=== PATIENT | female | born 1985 | race Caucasian/White ===

== ENCOUNTER 2023-10-11 11:51 | Outpatient (REF) | payer MEDICAID, SELFPAY ==
[2023-10-11 14:12] LABS: Alanine Aminotransferase 11 U/L (0-31); Albumin Level 4.4 g/dL (3.5-5.0); Alkaline Phosphatase 31 U/L (39-117); Aspartate Amino Transferase 14 U/L (5-31); Bilirubin Direct 0.2 mg/dL (0.0-0.5); Bilirubin Total 0.6 mg/dL (0.0-1.0); Total Protein 7.7 g/dL (6.5-8.0)
[2023-10-11 14:48] LABS: Syphilis Screen Nonreactive (Nonreactive)
[2023-10-12 08:14] LABS: HBS Num1 18.95 mIU/mL (0-7.99); HBc Num1 0.16 S/CO (0.00-0.79); HBsAGNum1 0.23 S/CO (0.00-0.99); HIV AB/AG Nonreactive (Nonreactive); HIV Num 1 0.07 S/CO (0.00-0.99); Hepatitis B Core Antibody Nonreactive (Nonreactive); Hepatitis B Surface Antigen Negative (Negative); ~HepC Num1 0.13 S/CO (0.00-0.79); ~Hepatitis B Surface Antibody REACTIVE (Nonreactive); ~Hepatitis C Antibody Nonreactive (Nonreactive)
[2023-10-13 19:29] LABS: TS Negative Control Passed; TS Panel A 0; TS Panel B 1; TS Positive Control Passed; TSpotTB Negative (Negative)
== END 2023-10-11 11:52 | disposition home or self-care (01) ==
LOC: HO.HHCL 11:51
PROVIDERS: Visit Provider Emergency Medicine
DX: Z11.4 Encounter for screening for human immunodeficiency virus [HIV] (principal); Z11.1 Encounter for screening for respiratory tuberculosis; F11.20 Opioid dependence, uncomplicated
CPT/HCPCS: 36415; 80076; 86481; 86704; 86706; 86780; 86803; 87340; 87389

== ENCOUNTER 2025-05-21 09:14 | Outpatient (REF) | payer MEDICAID, SELFPAY ==
--- OUTSIDE RECORDS SUMMARY | 2025-05-21 09:40 | XMS_ITS | Encounter Summary ---
Author Organization [employer] Address [address] [facility] 7t [place] [address] Care Team Providers Care Lining Stuffer Name Role Phone Unavailable Primary Care Provider Unavailabl e Reason for Visit * Reason Comments Med Refill Encounter Details Date Type Department Care Team (Late Contact Info) Description 05/14/[address] [facility] [address] [place] [address] 14934 Tho Welch MD [address] [place] [address] 13370 Uncomplicated opioid dependence (CMS/[facility]) Social History Tobacco Use Types Packs/Day Years Used Date Smoking Tobacco: Former Cigarettes Smokeless Tobacco: Never Comments Unknown Sex and Gender Information Value Date Recorded Sex Assigned at Female 07/26/2022 10:29 AM EDT Legal Sex Female 10:29 AM EDT Gender Identity Female 07/26/2022 10:29 AM EDT Sexual Orientation Straight 07/26/2022 10 :29 AM EDT documented as of this encounter Plan of Treatment Upcoming Encounters Date Type Department Care Team (Late Contact Info) Description 05/21/2025 10:00 AM EDT Office Visit [facility] [address] [place] [address] 24324 Gurwinder Guerrero MD [address] [place] [address] 92158 Arrived 08/13/2025 10:00 AM EST Office Visit [facility] [address] [place] [address] 13786 Gurwinder Guerrero MD [address] [place] [address] 13557 documented as of this encounter Visit Diagnoses Diagnosis Uncomplicated opioid dependence (CMS/HCC) documented in this encounter
--- OUTSIDE RECORDS SUMMARY | 2025-05-21 09:40 | XMS_ITS | Clinical Summary ---
Author Organization [employer] Address [address] [facility] [address] 7t [place] [address] Care Team Providers Care Rail Car Repair Carman Name Role Phone Unavailable Primary Care Provider Unavailabl e Allergies No known active allergies Medications * This document contains information received from the source organization and may not represent a complete record from that organization. naloxone (Narcan) 4 mg/0.1 mL nasal spray FOR SUSPECTED OPIOID OVERDOSE. SPRAY 0.1mL IN ONE NOSTRIL. REPEAT IN ALTERNATE NOSTRIL 2-3 MINUTES IF NEEDED. SEEK MEDICAL ATTENTION IMMEDIATELY EVEN IF PATIENT RESPONDS. 2 each 1 3 Active docusate sodium (Colace) 100 MG capsule TAKE 1 CAPSULE BY MOUTH TWICE DAILY NEEDED FOR CONSTIPATION 180 capsule 5 4 Active nicotine polacrilex (Nicorette) 2 MG gum Chew one piece q 2-4 hours as needed instead of a cigarette. 100 each 1 5 Active Ventolin HFA 108 (90 Base) MCG/ACT inhaler Inhale 2 puffs every 6 (six) hours if needed. 5 Active Buprenorphine HCl-Naloxone HCl (Suboxone) 8-2 MG SL filmIndication s:Uncomplicate d opioid dependence (CMS/HCC) Place 1 Film under the tongue 2 times daily. Do not start before March 18, 2025. 56 Film 1 5 05/13/20 25 Active Problems Problem Noted Date Diagnosed Date JONATHAN (generalized anxiety disorder) 11/15/2024 Opioid dependence, uncomplicated 10/10/2015 Encounters Date Type Department Care Team Description 05/21/2025 10:00 AM EDT Office Visit [facility] [address] [place], [place] [address], [place] [address] Gurwinder Guerrero MD Arrived 05/21/2025 Travel 05/09/2025 Refill [facility] [address] [place] [address] Tho Welch MD Uncomplicated opioid dependence ([facility]) 04/25/2025 Telephone [facility] [address] [place] [address] Chen Cabrales RN 04/25/2025 Telephone [facility] [address] [place] [address] Josue Delacruz MD 03/28/2025 Telephone [facility] [address] [place] [address] Josue Delacruz MD New Patient appt. 03/27/2025 Telephone [facility] [address] [place] [address] Abdias Joyce RN 03/22/2025 Telephone [facility] [address] [place] [address] Gloria Gaspar RN 03/22/2025 Telephone [facility] [address] [place] [address] Gloria Gaspar RN 03/19/2025 Refill [facility] [address] [place] [address] Gloria Gaspar RN 03/15/2025 Refill [facility] [address] [place] [address] Gloria Gaspar, SUBHA Uncomplicated opioid dependence ([facility]) 02/21/2025 Telephone [facility] [address] [place] [address] Gloria Gaspar, SUBHA from Last 3 Months Immunizations Immunization Administration Dates Next Due Influenza injectable quadriv alent IIV4 with preservative 07/28/2018 Tdap 11/17/2017 Social History Tobacco Use Types Packs/Day Years Used Date Smoking Tobacco: Former Cigarettes Smokeless Tobacco: Never Tobacco Cessation:Counseling Given: Not Answered Depression Answer Date Recorded Patient Health Questionnaire-9 Score 2 11/15/2024 Patient Health Questionnaire-9 Score 2 11/15/2024 Last PHQ-9: Questionnaire Data Not on file 0 11/15/2024 Depression Answer Date Recorded Patient Health Questionnaire-2 Score 0 11/15/2024 Comments Unknown Sex and Gender Information Value Date Recorded Sex Assigned at Female 07/26/2022 10:29 AM EDT Legal Sex Female 10:29 AM EDT Gender Identity Female 07/26/2022 10:29 AM EDT Sexual Orientation Straight 07/26/2022 10 :29 AM EDT Last Filed Vital Signs Vital Sign Reading Time Taken Comments Blood Pressure 132/72 01/31/2024 1:56 PM EDT Pulse 85 01/31/2024 1:56 PM EDT Temperature 36.8 C (98.2 F) 01/31/2024 1:56 PM EDT Respiratory Rate - - Oxygen Saturation - - Inhaled Oxygen Concentration - - Weight - - Height - - Body Mass Index - - Plan of Treatment Upcoming Encounters Date Type Department Care Team (Late st Contact Info) Description 05/21/2025 10:00 AM EDT Office Visit [facility] [address] [place] [address] 98115 Gurwinder Guerrero MD [address] [place] [address] 88[address] Arrived 08/13/2025 10:00 AM EST Office Visit [address] [address] Gurwinder Guerrero MD [address] [place] [address] Health Maintenance Due Date Last Done Comments SDOH Screening 1987 Disability Screening 1987 Alcohol/Substance Use Screening 1999 Family Planning (PISQ) 2002 HPV Vaccines (1 - 3-dose series) 2002 Hepatitis B Vaccines (1 of 3 - 19+ 3-dose series) 2006 Pneumococcal Vaccine: Pediatrics (0 to 5 Years) and At-Risk Patients (6 to 49) Years (1 of 2 - PCV) 2006 Pap Smear 2008 Cervical Cancer Screening 2017 HPV/Cotest 2017 COVID-19 Vaccine ( - season) 2024 Influenza Vaccine (#1) 2025 07/28/2018 Tobacco Screening 07/17/2025 07/17/2024 Depression Screening 11/15/2025 11/15/2024, 11/15/19 DTaP/Tdap/Td Vaccines (2 - Td or Tdap) 11/17/2027 11/17/2017 Zoster Vaccines (1 of 2) 2037 RSV Patients and Patients Aged 60 years or older (1 - 1-dose 75+ series) 2062 HIV Screening Completed 10/11/2023, 12/26, 01/21/2022, Additional history exists Hepatitis C Screening Completed 10/11/2023 , 01/21/2022, 01/21/2022, Additional history exists HIB Vaccines Aged Out No longer eligi ble based on patient's age to complete this topic Hepatitis A Vaccines Aged Out No long er eligible based on patient's age to complete this topic IPV Vaccines Aged Out No longer eligi ble based on patient's age to complete this topic Meningococcal B Vaccine Aged Out No l onger eligible based on patient's age to complete this topic Meningococcal Vaccine Aged Out No juana robinson eligible based on patient's age to complete this topic RSV under 20 months Aged Out No longe r eligible based on patient's age to complete this topic Rotavirus Vaccines Aged Out No longer eligible based on patient's age to complete this topic Procedures Procedure Name Priority Date/Time Associated Diagnosis Comments HEPATITIS C AB W/REFL TO HCV RNA, QN, PCR Routine 10/11/2023 11:57 AM EST Opioid type dependence, continuous (CMS/HCC) HIV 1/2 ANTIGEN/ANTIBODY, FOURTH GENERATION W/RFL Routine 10/11/2023 11:57 AM EST Opioid type dependence, continuous (CMS/HCC) from Last 3 Months or Most Recently Relevant to Health Maintenance Results * Hepatitis C Antibody with Reflex to HCV, RNA, Quantitative, Real-Time PCR (10/11/2023 11:57 AM EST) Hepatitis C Antibody Nonreactive Nonreactive [facility] Comment:Antibodies to HCV no t detected; does not exclude early acuteHCV infection. Blood Venous blood specimen / Unknown 10/11/2023 11:57 AM EST 10/11/2023 1:11 PM EST Tho Welch MD LAB BLOOD ORDERABLES Final Resul t Performing Organization Address [facility] Co de Phone Number [facility] [address] [place] [address] [phone] * HIV-1/2 Antigen and Antibodies, Fourth Generation, with Reflexes (10/11/2023 11:57 AM EST) [facility] HIV AB/AG Nonreactive Nonreactive [facility] Comment:HIV-1 p24 Ag and/or HIV-1/HIV-2 Ab not detected.A test result that is nonreactive does not exclude thepossibility of exposure to or infection with HIV-1 and/orHIV-2. Nonreactive results in this assay for individualswith prior exposure to HIV-1 and/or HIV-2 may be due toantigen and antibody levels that are below the limit ofdetection of this assay.The [employer] HIV Ag/Ab Combo assay result andsupplemental assay results should be interpreted inconjunction with the patient's clinical presentation,history and other laboratory results. If the results areinconsistent with clinical evidence, additional testing issuggested to confirm the result. Blood Venous blood specimen / Unknown 10/11/2023 11:57 AM EST 10/11/2023 1:11 PM EST Tho Welch MD LAB BLOOD ORDERABLES Final Resul t Performing Organization Address [facility] Co de Phone Number [facility] [address] [place] [address] [phone] from Last 3 Months or Most Recently Relevant to Health Maintenance Insurance [facility] [address] [place] [address] [place] [address] [place] [address]
--- OUTSIDE RECORDS SUMMARY | 2025-05-21 09:40 | XMS_ITS | Encounter Summary ---
Author Organization [employer] Address [address] [facility] 7t [place] [address] Care Team Providers Care Steam Trap Man Name Role Phone Unavailable Primary Care Provider Unavailabl e Reason for Visit * Reason Comments Med Refill Encounter Details Date Type Department Care Team (Late Contact Info) Description 01/20/2024 Refill [facility] [address] [place] [address] Tho Welch MD [address] [place] [address] 0[address] Uncomplicated opioid dependence (CMS/[facility]) Social History Tobacco Use Types Packs/Day Years [...] Description 05/21/2025 10:00 AM EDT Office Visit [facility] [address] [place] [address] Gurwinder Guerrero MD [address] [place] [address] Arrived 08/13/2025 10:00 AM EST Office Visit [facility] [address] [place] [address] 590[address] Gurwinder Guerrero MD [address] [place] [address] 332[address] documented as of this encounter Visit Diagnoses Diagnosis Uncomplicated opioid dependence (CMS/HCC) documented in this encounter
--- OUTSIDE RECORDS SUMMARY | 2025-05-21 09:40 | XMS_ITS | Encounter Summary ---
Author Organization [employer] Address [address] [facility] [address] 7t [place] [address] Care Team Providers Care Coal Gasification Technician Name Role Phone Unavailable Primary Care Provider Unavailabl e Encounter Details Date Type Department Care Team (Latest Contact Info) Description 05/21/2025 Travel Social History Tobacco Use Types Packs/Day Years Used Date Smoking Tobacco: Former Cigarettes Smokeless Tobacco: Never Depression Answer Date Recorded Patient Health Questionnaire-9 [...] 10:00 AM EDT Office Visit [facility] [address] [place] [phone] Gurwinder Guerrero MD [address] [place] [address] 48[address] Arrived 08/13/2025 10:00 AM EST Office Visit [address] [address] Gurwinder Guerrero MD [address] [place] [address] documented as of this encounter Visit Diagnoses Not on filedocumented in this encounter Additional Health Concerns Assessment Noted Time PHQ-9 Depression Total Score: 2 11/15/19 25 11:33 AM EST documented as of this encounter
--- OUTSIDE RECORDS SUMMARY | 2025-05-21 09:40 | XMS_ITS | Encounter Summary ---
Author Organization [employer] Address [address] [facility] 7t [place] [address] Care Team Providers Care Business Consultant Name Role Phone Unavailable Primary Care Provider Unavailabl e Reason for Visit * Reason Comments Med Refill Encounter Details Date Type Department Care Team (Late Contact Info) Description 05/09/2025 Refill [facility] [address] [place] [phone] Tho eWlch MD [address] [place] [address] Uncomplicated opioid dependence (CMS/[facility]) Social History Tobacco Use Types Packs/Day Years [...] Description 05/21/2025 10:00 AM EDT Office Visit [facility] [address] [place] [address] Gurwinder Guerrero MD [address] [place] [address] Arrived 08/13/2025 10:00 AM EST Office Visit [facility] [address] [place], [place] [phone] Gurwinder Guerrero MD [address] [place] [address] documented as of this encounter Visit Diagnoses Diagnosis Uncomplicated opioid dependence (CMS/HCC) documented in this encounter Additional Health Concerns Assessment Noted Time PHQ-9 Depression Total Score: 2 11/15/19 11:33 AM EST documented as of this encounter
--- OUTSIDE RECORDS SUMMARY | 2025-05-21 09:40 | XMS_ITS | Encounter Summary ---
Author Organization [employer] Address [address] [facility] 7t [place] [address] Care Team Providers Care Gis Software Engineer Name Role Phone Unavailable Primary Care Provider Unavailabl e Reason for Visit * Reason Comments Med Refill Encounter Details Date Type Department Care Team (Late Contact Info) Description 06/03/2023 Refill [facility] [address] [place] [address] Gurwinder Guerrero MD [address] [place] [address] Uncomplicated opioid dependence (CMS/HCC) Social History Tobacco Use Types Packs/Day Years Used Date Smoking Tobacco: Never Assessed Comments Unknown Sex and Gender Information Value Date Recorded Sex Assigned at Female 07/26/2022 10:29 AM EDT Legal Sex Female 10:29 AM EDT Gender Identity Female 07/26/2022 10:29 AM EDT Sexual Orientation Straight 07/26/2022 10 :29 AM EDT documented as of this encounter Plan of Treatment Upcoming Encounters Date Type Department Care Team (Late Contact Info) Description 05/21/2025 10:00 AM EDT Office Visit [facility] [address] [place] [address] [phone] Gurwinder Guerrero MD [address] [place] [address] [phone] Arrived 08/13/2025 10:00 AM EST Office Visit [facility] [address] [place] [address] [phone] Gurwinder Guerrero MD [address] [place] [address] documented as of this encounter Visit Diagnoses Diagnosis Uncomplicated opioid dependence (CMS/HCC) documented in this encounter
--- OUTSIDE RECORDS SUMMARY | 2025-05-21 09:40 | XMS_ITS | Encounter Summary ---
Author Organization [employer] Address [address] [facility] [address]t [place] [address] Care Team Providers Care Sales Planner Name Role Phone Unavailable Primary Care Provider Unavailabl e Encounter Details Date Type Department Care Team (Late st Contact Info) Description 11/02/2024 Orders Only [address] [address] Gloria Gaspar RN Opioid dependence, uncomplicated ([facility]) Social History Tobacco Use Types Packs/Day [...] Description 05/21/2025 10:00 AM EDT Office Visit [facility] [address] [place] [address] Gurwinder Guerrero MD [address] [place] [address] Arrived 08/13/2025 10:00 AM EST Office Visit [address] [address] Gurwinder Guerrero MD [address] [place] [address] Scheduled Orders Name Type Priority Associated Diagnoses Orde r Schedule Hepatic Function Panel Lab Routine Opioid dependence, uncomplicated (CMS/HCC) Expected: 11/02/2024 (Approximate), Expires: 11/02/2025 Hepatitis C Antibody with Reflex to HCV, RNA, Quantitative, Real-Time PCR Lab Routine Opioid dependence, uncomplicated (CMS/HCC) Expected: 11/02/2024 (Approximate), Expires: 11/02/2025 HIV-1/2 Antigen and Antibodies, Fourth Generation, with Reflexes Lab Routine Opioid dependence, uncomplicated (CMS/HCC) Expected: 11/02/2024 (Approximate), Expires: 11/02/2025 Syphilis Screen Lab Routine Opioid dependence, uncomplicated (CMS/HCC) Expected: 11/02/2024 (Approximate), Expires: 11/02/2025 T-SPOT .TB Lab Routine Opioid dependence, uncomplicated (CMS/HCC) Expected: 11/02/2024 (Approximate), Expires: 11/02/2025 documented as of this encounter Visit Diagnoses Diagnosis Opioid dependence, uncomplicated (CMS/HCC) documented in this encounter
--- OUTSIDE RECORDS SUMMARY | 2025-05-21 09:40 | XMS_ITS | Encounter Summary ---
Author Organization [employer] Address 75 [facility] 7t [place] [address] Care Team Providers Care Application Development Specialist Name Role Phone Unavailable Primary Care Provider Unavailabl e Reason for Visit * Reason Comments Med Refill Encounter Details Date Type Department Care Team (Late Contact Info) Description 09/03/2024 Refill [facility] [address] [place] [address] Tho Welch MD [address] [place] [address] Uncomplicated opioid dependence (CMS/[facility]) Social History Tobacco Use Types [...] Description 05/21/2025 10:00 AM EDT Office Visit [facility] [address] [place] [phone] Gurwinder Guerrero MD [address] [place] [address] Arrived 08/13/2025 10:00 AM EST Office Visit [facility] [address] [place] [address] Gurwinder Guerrero MD [address] [place] [address] documented as of this encounter Visit Diagnoses Diagnosis Uncomplicated opioid dependence (CMS/HCC) documented in this encounter
--- OUTSIDE RECORDS SUMMARY | 2025-05-21 09:40 | XMS_ITS | Encounter Summary ---
Author Organization [employer] Address [address] [facility] 7t [place] [address] Care Team Providers Care Machine Assembler For Puller Over Name Role Phone Unavailable Primary Care Provider Unavailabl e Reason for Visit * Reason Comments Med Refill Encounter Details Date Type Department Care Team (Late Contact Info) Description 08/08/2023 Refill [facility] [address] [place] [address] Tho Welch MD [address] [place] [address] Uncomplicated opioid dependence (CMS/[facility]) Social History Tobacco Use Types Packs/Day [...] Description 05/21/2025 10:00 AM EDT Office Visit [facility] [address] [place] [phone] Gurwinder Guerrero MD [address] [place] [address] Arrived 08/13/2025 10:00 AM EST Office Visit [facility] [address] [place] [address] Gurwinder Guerrero MD [address] [place] [address] documented as of this encounter Visit Diagnoses Diagnosis Uncomplicated opioid dependence (CMS/HCC) documented in this encounter
--- OUTSIDE RECORDS SUMMARY | 2025-05-21 10:00 | XMS_ITS | Encounter Summary ---
Author Organization [employer] Address [address] [facility] 7t [place] [address] Care Team Providers Care Supervisor Cigarette Making Department Name Role Phone Unavailable Primary Care Provider Unavailabl e Reason for Visit * Reason Comments OBAT F/U Encounter Details Date Type Department Care Team (Late Contact Info) Description 05/21/2025 10:00 AM EDT Office Visit [facility] [address] [place] [address] Gurwinder Guerrero MD [address] [place] [phone] Arrived Social History Tobacco Use Types Packs/Day Years [...] Department Care Team (Late Contact Info) Description 08/13/2025 10:00 AM EST Office Visit [address] [address] Gurwinder Guerrero MD [address] [place] [address] documented as of this encounter Visit Diagnoses Not on filedocumented in this encounter Additional Health Concerns Assessment Noted Time PHQ-9 Depression Total Score: 2 11/15/19 25 11:33 AM EST documented as of this encounter
[2025-05-21 11:26] LABS: Alanine Aminotransferase 35 U/L (0-31); Albumin Level 4.7 g/dL (3.5-5.0); Alkaline Phosphatase 54 U/L (39-117); Aspartate Amino Transferase 32 U/L (5-31); Total Protein 8.1 g/dL (6.5-8.0)
[2025-05-21 11:46] LABS: Syphilis Screen Nonreactive (Nonreactive)
[2025-05-21 11:58] LABS: HIV Num 1 0.12 S/CO (0.00-0.99); ~HepC Num1 0.13 S/CO (0.00-0.79); ~Hepatitis C Antibody Nonreactive (Nonreactive)
[2025-05-24 18:24] LABS: TS Negative Control Passed; TS Panel A 1; TS Panel B 0; TS Positive Control Passed; TSpotTB Negative (Negative)
== END 2025-05-21 09:15 | disposition home or self-care (01) ==
LOC: HO.HHCL 09:14
PROVIDERS: PCP Internal Medicine; Visit Provider Emergency Medicine
DX: F11.20 Opioid dependence, uncomplicated (principal); Z11.3 Encounter for screening for infections with a predominantly sexual mode of transmission; Z11.4 Encounter for screening for human immunodeficiency virus [HIV]; Z11.59 Encounter for screening for other viral diseases; Z11.7 Encounter for testing for latent tuberculosis infection
CPT/HCPCS: 36415; 80076; 86481; 86780; 86803; 87389